=== PATIENT | female | born 1965 | race American Indian/Alaskan Native ===

== ENCOUNTER 2017-08-12 20:03 | Emergency (ER) | payer SELFPAY ==
[2017-08-12 21:24] LABS: Basophils % (Auto) 0.2 % (0.0-1.8); Eosinophils # (Auto) 0.1 K/mm3 (0.0-0.4); Eosinophils % (Auto) 1.8 % (0.0-4.3); Hematocrit 45.8 % (30.3-42.9); Hemoglobin 15.1 gm/dl (10.1-14.3); Lymphocytes # (Auto) 0.9 K/mm3 (1.2-5.4); Lymphocytes % (Auto) 22.5 % (13.4-35.0); Mean Corpuscular HGB Conc 33 % (30-34); Mean Corpuscular Hemoglobin 30 pg (28-32); Mean Corpuscular Volume 90 fl (79-97); Monocytes # (Auto) 0.3 K/mm3 (0.0-0.8); Monocytes % (Auto) 7.7 % (0.0-7.3); Platelet Count 164 K/mm3 (140-440); Red Cell Distribution Width 13.7 % (13.2-15.2)
[2017-08-12 21:45] LABS: Alanine Aminotransferase 15 units/L (7-56); Albumin 4.4 g/dL (3.9-5); BUN/Creatinine Ratio 19; Blood Urea Nitrogen 15 mg/dL (7-17); Calcium 10.8 mg/dL (8.4-10.2); Hemolysis Index 3
[2017-08-13 03:58] LABS: Bacteria,Urine 1+ /HPF (Negative); Bilirubin,Urine NEG (Negative); Blood,Urine NEG (Negative); Calcium Oxalate Crystals,Urine 2+; Color,Urine Yellow (Yellow); Hyaline Casts,Urine 1 /LPF; Mucus,Urine FEW /HPF; Nitrite,Urine NEG (Negative); Protein,Urine <15 mg/dL mg/dL (Negative); Urobilinogen,Urine < 2.0 mg/dL (<2.0)
[2017-08-13] MEDS ORDERED: ZOFRAN IV ONE (08:10)
[2017-08-13] MEDS ORDERED: TORADOL IV ONE (08:10)
[2017-08-13] MEDS ORDERED: NACL 0.9% 500 ML 500 ML IV ONE (08:10)
--- NOTE | 2017-08-13 08:25 | Emergency Department Report ---
HPI - General Chief Complaint: Abdominal Pain Time Seen by Provider: 08/13/17 08:06 - [facility] HPI: The patient is a 52-year-old female presents for evaluation of abdominal pain. The patient reports upper abdominal pain since 1 PM yesterday, approximately 20 hours prior to my evaluation. The patient states that her abdominal pain has been cramping in quality, moderate to severe, currently 7/10 in severity, and is exacerbated with defecation. She has also has experienced multiple episodes of loose watery stools x4-5 since y/d afternoon, and recurrent nausea. The patient denies fever, chest pain, dyspnea, hematemesis, blood in the stools, black tarry stools, recent antibiotic use, travel outside the country, exposure to raw or uncooked seafood, reheated foods, untreated water, unpasteurized dairy. ED Past Medical Hx - Past Medical History Previous Medical History?: Yes Hx Asthma: Yes - Surgical History Past Surgical History?: Yes Additional Surgical History: x5 - Social History Smoking Status: Never Smoker Substance Use Type: None - Medications Home Medications: Home Medications Medication Instructions Recorded Confirmed Last Taken Type Acetaminophen [Tylenol] 1,000 mg PO Q6HR #20 tablet 08/13/17 Unknown Rx Ibuprofen [Motrin] 800 mg PO Q8HR PRN #15 tablet 08/13/17 Unknown Rx Ondansetron [Zofran TAB] 4 mg PO Q8HR PRN #20 tablet 08/13/17 Unknown Rx ED Review of Systems ROS: Stated complaint: N/V/D Other details as noted in HPI Constitutional: denies: fever ENT: denies: throat or neck pain Respiratory: denies: cough, shortness of breath Cardiovascular: denies: chest pain Endocrine: denies unexplained weight loss or gain Gastrointestinal: reports abdominal pain, nausea Genitourinary: denies: dysuria Musculoskeletal: denies: leg swelling Skin: denies: rash Neurological: denies: headache Hematological/Lymphatic: denies: easy bleeding or easy bruising Psych: denies sadness or hopelessness Physical Exam - Physical Exam Vital Signs: Vital Signs 08/12/17 08/13/17 08/13/17 20:34 06:35 07:10 Temperature 99 F 98.1 F 98.4 F Pulse Rate 78 56 L 62 Respiratory 18 18 18 Rate Blood Pressure 115/71 Blood Pressure 129/73 106/58 [Left] O2 Sat by Pulse 97 100 97 Oximetry Physical Exam: General: well-nourished, well-developed, no acute distress Head: Normocephalic, atraumatic Eyes: normal sclera ENT: Mucous membranes are pale and dry Neck: No neck stiffness, no cervical adenopathy Respiratory: Breath sounds equal bilaterally, no wheezing, rales, or rhonchi Cardio: S1 and S2 present, no murmurs, rubs, gallops, capillary refill is delayed Abdomen: Normoactive bowel sounds, soft abdomen, epigastric and left upper quadrant tenderness to palpation present, no rigidity, no guarding or rebound tenderness Chest WALL/Back: No tenderness to palpation of the chest wall, no CVA tenderness with percussion Musc: No pitting edema Skin: No rash Neuro: no facial drooping, normal speech Psych: Normal affect ED Course Vital Signs 08/12/17 08/13/17 08/13/17 20:34 06:35 07:10 Temperature 99 F 98.1 F 98.4 F Pulse Rate 78 56 L 62 Respiratory 18 18 18 Rate Blood Pressure 115/71 Blood Pressure 129/73 106/58 [Left] O2 Sat by Pulse 97 100 97 Oximetry ED Medical Decision Making - Lab Data Result diagrams: 08/12/17 21:05 08/12/17 21:05 - Medical Decision Making The patient was seen and examined by myself. The patient is placed on a textile stylist and continuous pulse ox. On initial evaluation, the patient was found to be in no distress. Evaluation orders are placed. IV access is established and the patient is given 1 L normal saline fluid bolus and offered Zofran for nausea, and IV toradol for pain but she declined. Lab results exhibited elevated hemoglobin and hematocrit, consistent with hemoconcentration and exam findings of dehydration, and otherwise labs were non-concerning including WBC, electrolytes, renal function, LFTs, lipase. The patient was reevaluated and reported that their symptoms were markedly improved. The patient is stable for discharge with outpatient follow-up. The patient is given follow-up and return instructions. The patient expressed understanding and agreed with the plan. The patient is discharged in stable condition. Critical care attestation.: If time is entered above; I have spent that time in minutes in the direct care of this critically ill patient, excluding procedure time. ED Disposition Clinical Impression: Dehydration, Abdominal pain, acute, epigastric Diarrhea Qualifiers: Diarrhea type: unspecified type Qualified Code(s): R19.7 - Diarrhea, unspecified Disposition: TO HOME OR SELFCARE Is pt being admited?: No Does the pt Need Aspirin: No Condition: Stable Instructions: Abdominal Pain (ED), Gastroenteritis (ED), Nutrition Tips for Relief of Diarrhea (ED) Prescriptions: Acetaminophen [Tylenol] 1,000 mg PO Q6HR #20 tablet Ibuprofen [Motrin] 800 mg PO Q8HR PRN #15 tablet PRN Reason: Pain Ondansetron [Zofran TAB] 4 mg PO Q8HR PRN #20 tablet PRN Reason: Nausea Referrals: JEANETTE MERCADO [Other] - 3-5 Days Time of Disposition: 08:25
[2017-08-13 10:38] VITALS: BP 108/61
[2017-08-13 15:30] LABS: HCG Qualitative,Urine Negative (Negative)
== END 2017-08-13 10:18 | disposition home or self-care (01) ==
LOC: ED 20:03
DX: E86.0 Dehydration (principal); R10.13 Epigastric pain; R19.7 Diarrhea, unspecified; J45.909 Unspecified asthma, uncomplicated; Z88.5 Allergy status to narcotic agent
CPT/HCPCS: 36415; 80053; 81001; 81025; 85025; 99284; J2405; J7040; J1885

== ENCOUNTER 2018-08-18 20:59 | Emergency (ER) | payer SELFPAY ==
[2018-08-18] MEDS ORDERED: NACL 0.9% 1000 ML 1,000 ML IV ONE (21:45)
--- NOTE | 2018-08-18 21:47 | Emergency Department Report ---
Blank Doc - Documentation Documentation: 53 y.o. female presents with nausea, diarrhea, and abdominal pain. States pain is severe cramping to LUQ. Denies vomiting Labs ordered Fast Track for evaluation
[2018-08-18 23:31] LABS: Basophils % (Auto) 0.3 % (0.0-1.8); Eosinophils # (Auto) 0.1 K/mm3 (0.0-0.4); Eosinophils % (Auto) 1.6 % (0.0-4.3); Hematocrit 43.7 % (30.3-42.9); Lymphocytes # (Auto) 0.8 K/mm3 (1.2-5.4); Lymphocytes % (Auto) 15.5 % (13.4-35.0); Mean Corpuscular HGB Conc 32 % (30-34); Mean Corpuscular Volume 89 fl (79-97); Monocytes # (Auto) 0.4 K/mm3 (0.0-0.8); Monocytes % (Auto) 7.5 % (0.0-7.3); Platelet Count 164 K/mm3 (140-440); Red Cell Distribution Width 13.6 % (13.2-15.2)
[2018-08-18 23:50] LABS: Bilirubin,Urine NEG (Negative); Blood,Urine NEG (Negative); Color,Urine Yellow (Yellow); Mucus,Urine FEW /HPF; Protein,Urine <15 mg/dL mg/dL (Negative); Urobilinogen,Urine < 2.0 mg/dL (<2.0)
[2018-08-19 00:05] LABS: Alanine Aminotransferase 14 units/L (7-56); Albumin 4.2 g/dL (3.9-5); BUN/Creatinine Ratio 12; Blood Urea Nitrogen 11 mg/dL (7-17); Calcium 9.8 mg/dL (8.4-10.2); Hemolysis Index 9
[2018-08-19] MEDS ORDERED: ZOFRAN IV ONE (01:37)
[2018-08-19] MEDS ORDERED: NACL 0.9% 1000 ML 2,000 ML IV ONE (01:37)
[2018-08-19] MEDS ORDERED: PEPCID IV ONE (01:37)
[2018-08-19] MEDS ORDERED: CARAFATE PO ONE (01:38)
[2018-08-19] MEDS ORDERED: BENTYL PO ONE (01:38)
[2018-08-19] MEDS ORDERED: TYLENOL PO ONE (01:39)
--- NOTE | 2018-08-19 01:40 | Emergency Department Report ---
ED General Adult HPI - General Chief complaint: Abdominal Pain Stated complaint: ABD PAIN Time Seen by Provider: 08/18/18 21:42 Source: patient, EMS (ems notes not available at time of chart dictation), RN notes reviewed Mode of arrival: Stretcher Limitations: No Limitations - History of Present Illness Initial comments: Lexii a 53-year-old female who is not known to this provider previously, reports no current primary care doctor, denies chronic medical conditions. Patient reports that she has had a colonoscopy within the past 5 years, and rep orts polyps, but otherwise no significant findings. Presents to the emergency room today with a complaint of left-sided abdominal pain, which feels like "my stomach is turning inside out." This is associated with 16 episodes of nonbloody, nonbilious diarrhea, watery in nature. Patient denies chest pain, shortness of breath, irritative, obstructive urinary symptoms, but feels generally weak. Symptoms constant since earlier on yesterday, did not radiate anywhere, increased with palpation, range of motion, decreased with rest No recent antibiotic use, no fevers that she is aware of, no sick contacts that she is aware of. Denies raw, undercooked food consumption. -: Gradual Location: abdomen Radiation: non-radiation Severity scale (0 -10): 10 Quality: aching, other (see history of present illness) Consistency: other Improves with: other Worsens with: other Associated Symptoms: loss of appetite, malaise, nausea/vomiting (nausea, no vomiting), weakness. denies: confusion, chest pain, cough, diaphoresis, fever/chills, headaches, rash, seizure, shortness of breath, syncope - Related Data Previous Rx's Medication Instructions Recorded Last Taken Type Acetaminophen [Tylenol] 1,000 mg PO Q6HR #20 tablet 08/13/17 Unknown Rx Ibuprofen [Motrin] 800 mg PO Q8HR PRN #15 tablet 08/13/17 Unknown Rx Ondansetron [Zofran TAB] 4 mg PO Q8HR PRN #20 tablet 08/13/17 Unknown Rx Acetaminophen [Tylenol Arthritis] 650 mg PO Q6HR PRN #30 tablet.er 08/19/18 Unknown Rx Ibuprofen [Motrin] 600 mg PO Q8H PRN #30 tablet 08/19/18 Unknown Rx Loperamide HCl [Anti-Diarrheal] 2 mg PO Q1HR PRN #60 tablet 08/19/18 Unknown Rx Ondansetron [Zofran Odt] 4 mg PO Q8HR PRN #20 tab.rapdis 08/19/18 Unknown Rx Allergies Allergy/AdvReac Type Severity Reaction Status Date / Time codeine Allergy Swelling Verified 08/12/17 20:43 diphenhydramine Allergy Unknown Verified 08/19/18 03:06 [From Benadryl] ED Review of Systems ROS: Stated complaint: ABD PAIN Other details as noted in HPI Constitutional: malaise Eyes: denies: vision change ENT: denies: epistaxis Respiratory: denies: cough Cardiovascular: denies: chest pain Gastrointestinal: abdominal pain, diarrhea. denies: vomiting Genitourinary: denies: dysuria Musculoskeletal: denies: back pain Skin: denies: lesions Neurological: weakness Psychiatric: anxiety ED Past Medical Hx - Past Medical History Hx Asthma: Yes Additional medical history: heart murmur - Surgical History Additional Surgical History: x5 - Social History Smoking Status: Never Smoker Substance Use Type: None - Medications Home Medications: Home Medications Medication Instructions Recorded Confirmed Last Taken Type Acetaminophen [Tylenol] 1,000 mg PO Q6HR #20 tablet 08/13/17 Unknown Rx Ibuprofen [Motrin] 800 mg PO Q8HR PRN #15 tablet 08/13/17 Unknown Rx Ondansetron [Zofran TAB] 4 mg PO Q8HR PRN #20 tablet 08/13/17 Unknown Rx Acetaminophen [Tylenol Arthritis] 650 mg PO Q6HR PRN #30 tablet.er 08/19/18 Unknown Rx Ibuprofen [Motrin] 600 mg PO Q8H PRN #30 tablet 08/19/18 Unknown Rx Loperamide HCl [Anti-Diarrheal] 2 mg PO Q1HR PRN #60 tablet 08/19/18 Unknown Rx Ondansetron [Zofran Odt] 4 mg PO Q8HR PRN #20 tab.rapdis 08/19/18 Unknown Rx ED Physical Exam - General Limitations: Physical Limitation General appearance: alert, in no apparent distress - Head Head exam: Present: atraumatic, normocephalic - Eye Eye exam: Present: normal appearance, EOMI. Absent: nystagmus - ENT ENT exam: Present: normal exam, normal orophraynx, mucous membranes moist, normal external ear exam - Neck Neck exam: Present: normal inspection, full ROM. Absent: tenderness, meningismus - Respiratory Respiratory exam: Present: normal lung sounds bilaterally. Absent: respiratory distress - Cardiovascular Cardiovascular Exam: Present: regular rate, normal rhythm, normal heart sounds. Absent: bradycardia, tachycardia, irregular rhythm, systolic murmur, diastolic murmur, rubs, gallop - GI/Abdominal GI/Abdominal exam: Present: soft, tenderness, other (there is left-sided abdominal tenderness, with no rebound, guarding or peritoneal signs). Absent: distended, guarding, rebound, rigid, pulsatile mass - Extremities Exam Extremities exam: Present: normal inspection, full ROM, other (2+ pulses noted in the bilateral upper, lower extremities. Compartments soft. No long bony tenderness. The pelvis is stable.). Absent: tenderness, pedal edema, joint swelling, calf tenderness - Back Exam Back exam: Present: normal inspection, full ROM. Absent: tenderness, CVA tenderness (R), paraspinal tenderness, vertebral tenderness - Neurological Exam Neurological exam: Present: alert, other (Extraocular movements intact. Tongue midline. No facial droop. Facial sensation intact to light touch in the V1, V2, V3 distribution bilaterally. 5 and 5 strength in 4 extremities.. Sensation is intact to light touch in 4 extremities.). Absent: motor sensory deficit - Psychiatric Psychiatric exam: Present: normal affect, normal mood - Skin Skin exam: Present: warm, dry, intact, normal color. Absent: rash ED Course Vital Signs 08/18/18 08/18/18 08/19/18 21:25 23:55 00:00 Temperature 99.4 F 98.9 F Pulse Rate 78 64 64 Respiratory 16 19 24 Rate Blood Pressure 117/63 121/68 108/64 Blood Pressure 121/68 [Left] O2 Sat by Pulse 99 100 Oximetry 08/19/18 08/19/18 08/19/18 01:00 02:10 02:52 Temperature 99 F Pulse Rate 82 68 Respiratory 23 16 20 Rate Blood Pressure 124/70 Blood Pressure 104/63 [Left] O2 Sat by Pulse 96 Oximetry 08/19/18 08/19/18 08/19/18 03:00 03:10 04:03 Temperature 99 F Pulse Rate 67 68 Respiratory 20 16 21 Rate Blood Pressure 93/57 Blood Pressure 101/58 [Left] O2 Sat by Pulse 92 98 Oximetry - Reevaluation(s) Reevaluation #1: 08/19/18 03:33 Differential diagnosis, including but not limited to: Colitis, diverticulitis, enteritis, perforated viscus Assessment and plan: 53-year-old female with left-sided abdominal pain, tenderness, diarrhea, suspect colitis, or diverticulitis. Patient is afebrile, with reassuring vital signs. Appears to be uncomfortable. We will treat her symptoms supportively, obtained CT scan of the abdomen and pelvis, and reassess after initial that appointment. Reevaluation #2: 08/19/18 05:03 CT scan shows enteritis as expected. No evidence of obstruction. Patient tolerating liquid feeds. We will start patient on loperamide, encourage oral hydration, diet as tolerated, and pain medication, antiemetic medication as needed. Patient now endorses that she does not have any place to go, and indicates that she is homeless. She does not meet criteria for medical admission to the hospital, but we will obtain a case management evaluation to provide the patient with resources that she may go to. She is resting comfortably in her stretcher, having a full conversation, and in no acute distress. ED Medical Decision Making - Lab Data Result diagrams: 08/18/18 23:16 08/18/18 23:16 Vital Signs 08/18/18 08/18/18 08/19/18 21:25 23:55 00:00 Temperature 99.4 F 98.9 F Pulse Rate 78 64 64 Respiratory 16 19 24 Rate Blood Pressure 117/63 121/68 108/64 Blood Pressure 121/68 [Left] O2 Sat by Pulse 99 100 Oximetry 08/19/18 08/19/18 08/19/18 01:00 02:10 02:52 Temperature 99 F Pulse Rate 82 68 Respiratory 23 16 20 Rate Blood Pressure 124/70 Blood Pressure 104/63 [Left] O2 Sat by Pulse 96 Oximetry Lab Results 08/18/18 08/18/18 08/18/18 Range/Units 23:16 23:16 23:16 WBC 5.1 (4.5-11.0) K/mm3 RBC 4.90 (3.65-5.03) M/mm3 Hgb 14.0 (10.1-14.3) gm/dl Hct 43.7 H (30.3-42.9) % MCV 89 (79-97) fl MCH 29 (28-32) pg MCHC 32 (30-34) % RDW 13.6 (13.2-15.2) % Plt Count 164 (140-440) K/mm3 Lymph % (Auto) 15.5 (13.4-35.0) % [place] % (Auto) 7.5 H (0.0-7.3) % Eos % (Auto) 1.6 (0.0-4.3) % Baso % (Auto) 0.3 (0.0-1.8) % Lymph # 0.8 L (1.2-5.4) K/mm3 [place] # 0.4 (0.0-0.8) K/mm3 Eos # 0.1 (0.0-0.4) K/mm3 Baso # 0.0 (0.0-0.1) K/mm3 Seg Neutrophils % 75.1 H (40.0-70.0) % Seg Neutrophils # 3.8 (1.8-7.7) K/mm3 Sodium 140 (137-145) mmol/L Potassium 4.0 (3.6-5.0) mmol/L Chloride 105.7 (98-107) mmol/L Carbon Dioxide 25 (22-30) mmol/L Anion Gap 13 mmol/L BUN 11 (7-17) mg/dL Creatinine 0.9 (0.7-1.2) mg/dL Estimated GFR > 60 ml/min BUN/Creatinine Ratio 12 % Glucose 89 (65-100) mg/dL Calcium 9.8 (8.4-10.2) mg/dL Total Bilirubin 0.30 (0.1-1.2) mg/dL AST 19 (5-40) units/L ALT 14 (7-56) units/L Alkaline Phosphatase 65 (35-129) units/L Total Protein 7.1 (6.3-8.2) g/dL Albumin 4.2 (3.9-5) g/dL Albumin/Globulin Ratio 1.4 % Lipase 20 (13-60) units/L Urine Color (Yellow) Urine Turbidity (Clear) Urine pH (5.0-7.0) Ur Specific [place] (1.003-1.030) Urine Protein (Negative) mg/dL Urine Glucose (UA) (Negative) mg/dL Urine Ketones (Negative) mg/dL Urine Blood (Negative) Urine Nitrite (Negative) Urine Bilirubin (Negative) Urine Urobilinogen (<2.0) mg/dL Ur Leukocyte Esterase (Negative) Urine WBC (Auto) (0.0-6.0) /HPF Urine RBC (Auto) (0.0-6.0) /HPF U Epithel Cells (Auto) (0-13.0) /HPF Urine Mucus /HPF 08/18/18 Range/Units 23:30 WBC (4.5-11.0) K/mm3 RBC (3.65-5.03) M/mm3 Hgb (10.1-14.3) gm/dl Hct (30.3-42.9) % MCV (79-97) fl MCH (28-32) pg MCHC (30-34) % RDW (13.2-15.2) % Plt Count (140-440) K/mm3 Lymph % (Auto) (13.4-35.0) % [place] % (Auto) (0.0-7.3) % Eos % (Auto) (0.0-4.3) % Baso % (Auto) (0.0-1.8) % Lymph # (1.2-5.4) K/mm3 [place] # (0.0-0.8) K/mm3 Eos # (0.0-0.4) K/mm3 Baso # (0.0-0.1) K/mm3 Seg Neutrophils % (40.0-70.0) % Seg Neutrophils # (1.8-7.7) K/mm3 Sodium (137-145) mmol/L Potassium (3.6-5.0) mmol/L Chloride (98-107) mmol/L Carbon Dioxide (22-30) mmol/L Anion Gap mmol/L BUN (7-17) mg/dL Creatinine (0.7-1.2) mg/dL Estimated GFR ml/min BUN/Creatinine Ratio % Glucose (65-100) mg/dL Calcium (8.4-10.2) mg/dL Total Bilirubin (0.1-1.2) mg/dL AST (5-40) units/L ALT (7-56) units/L Alkaline Phosphatase (35-129) units/L Total Protein (6.3-8.2) g/dL Albumin (3.9-5) g/dL Albumin/Globulin Ratio % Lipase (13-60) units/L Urine Color Yellow (Yellow) Urine Turbidity Clear (Clear) Urine pH 5.0 (5.0-7.0) Ur Specific [place] 1.023 (1.003-1.030) Urine Protein <15 mg/dl (Negative) mg/dL Urine Glucose (UA) Neg (Negative) mg/dL Urine Ketones Neg (Negative) mg/dL Urine Blood Neg (Negative) Urine Nitrite Neg (Negative) Urine Bilirubin Neg (Negative) Urine Urobilinogen < 2.0 (<2.0) mg/dL Ur Leukocyte Esterase Mod (Negative) Urine WBC (Auto) 3.0 (0.0-6.0) /HPF Urine RBC (Auto) 1.0 (0.0-6.0) /HPF U Epithel Cells (Auto) 2.0 (0-13.0) /HPF Urine Mucus Few /HPF - EKG Data -: EKG Interpreted by Sc EKG shows normal: sinus rhythm Rate: normal - EKG Data When compared to previous EKG there are: previous EKG unavailable 08/19/18 03:35 Normal sinus, 61 bpm, normal axis, normal intervals, low voltage, not consistent with ST elevation myocardial infarction. There is no prior EKG available for comparison. - Radiology Data Radiology results: pending, report reviewed, image reviewed Print Report Referring Physician: KEYANA YOUNG Patient Name: MELANIA HUDSON Date of : 1965 Sex: Female Report Date: 2018-08-19 Report Status: [place] [address] Cat Scan Report Signed Patient: MELANIA HUDSON MR#: [id number] : 1965 Acct:[id number] Age/Sex: 53 / F ADM Date: 08/18/18 Loc: ED Attending Dr: Ordering Physician: KEYANA YOUNG MD Date of Service: 08/19/18 Procedure(s): CT abdomen pelvis w con Accession Number(s): [id number] cc: KEYANA YOUNG MD FINAL REPORT PROCEDURE: CT ABDOMEN PELVIS W CON TECHNIQUE: Computerized axial tomography of the abdomen and pelvis was performed after the IV injection of iodinated nonionic contrast. HISTORY: left-sided abdominal pain, diarrhea COMPARISON: No prior studies are available for comparison. FINDINGS: Visualized lower thorax: No significant abnormality. Liver: Normal size and attenuation. There is a 13 millimeter cyst or hemangioma in the right lobe of the liver near the diaphragm. Spleen: Normal size and attenuation. Gallbladder and biliary system: Normal. Pancreas: Normal. Adrenals: Normal. Kidneys: There is a 17 millimeters cyst in the left kidney. There are no kidney stones. There is no hydronephrosis. GI tract: There are fluid-filled and thickened loops of small bowel without specific evidence of obstruction suggesting enteritis and mild ileus. The colon and appendix are unremarkable. There is no evidence of ischemic bowel injury.. Lymph nodes and mesentery: Normal. Vasculature: Normal. Bladder: Urinary bladder is unremarkable.. Reproductive organs: Uterus is unremarkable.. Peritoneum: There is no ascites or free air, abscess or adenopathy.. Musculoskeletal structures: No significant abnormality. Other: None. IMPRESSION: There is a 13 millimeter cyst or hemangioma in the right lobe of the liver near the diaphragm. There is a 17 millimeters cyst in the left kidney. There are no kidney stones. There is no hydronephrosis. There are fluid-filled and thickened loops of small bowel without specific evidence of obstruction suggesting enteritis and mild ileus. The colon and appendix are unremarkable. There is no evidence of ischemic bowel injury.. Urinary bladder is unremarkable.. There is no ascites or free air, abscess or adenopathy.. Transcribed By: CO Dictated By: MELANIA HARRELL MD Electronically Authenticated By: MELANIA HARRELL MD Signed Date/Time: 08/19/18 0402 Critical care attestation.: If time is entered above; I have spent that time in minutes in the direct care of this critically ill patient, excluding procedure time. ED Disposition Clinical Impression: Enteritis Disposition: DC-01 TO HOME OR SELFCARE Is pt being admited?: No Does the pt Need Aspirin: No Condition: Stable Instructions: Gastroenteritis (ED) Additional Instructions: Cultures were sent today, and results will be available in the next 3-5 days please have your primary care doctor contact the medical records department to obtain culture results. Take the medications as needed/directed. Follow up with her primary care doctor within the next 2-6 weeks. Return to the emergency room right away with new, worsening or different symptoms. Advance diet as tolerated, drink 6-8 cups of water per day Referrals: YESSICA SMALL MD [Primary Care Provider] - 7-10 days [facility] [Provider Group] - 7-10 days
--- NOTE | 2018-08-19 04:01 | Cat Scan Report ---
FINAL REPORT PROCEDURE: CT ABDOMEN PELVIS W CON TECHNIQUE: Computerized axial tomography of the abdomen and pelvis was performed after the IV inject ion of iodinated nonionic contrast. HISTORY: left-sided abdominal pain, diarrhea COMPARISON: No prior studies are available for comparison. FINDINGS: Visualized lower thorax: No significant abnormality. Liver: Normal size and attenuation. There is a 13 millimeter cyst or hemangioma in the right lobe of the liver near the diaphragm. Spleen: Normal size and attenuation. Gallbladder and biliary system: Normal. Pancreas: Normal. Adrenals: Normal. Kidneys: There is a 17 millimeters cyst in the left kidney. There are no kidney stones. There is no h ydronephrosis. GI tract: There are fluid-filled and thickened loops of small bowel without specific evidence of obst ruction suggesting enteritis and mild ileus. The colon and appendix are unremarkable. There is no lydia dence of ischemic bowel injury.. Lymph nodes and mesentery: Normal. Vasculature: Normal. Bladder: Urinary bladder is unremarkable.. Reproductive organs: Uterus is unremarkable.. Peritoneum: There is no ascites or free air, abscess or adenopathy.. Musculoskeletal structures: No significant abnormality. Other: None. IMPRESSION: There is a 13 millimeter cyst or hemangioma in the right lobe of the liver near the diaphragm. There is a 17 millimeters cyst in the left kidney. There are no kidney stones. There is no hydronephr osis. There are fluid-filled and thickened loops of small bowel without specific evidence of obstruction mahan ggesting enteritis and mild ileus. The colon and appendix are unremarkable. There is no evidence of i schemic bowel injury.. Urinary bladder is unremarkable.. There is no ascites or free air, abscess or adenopathy..
[2018-08-19] MEDS ORDERED: NACL 0.9% 1000 ML 1,000 ML ONE (04:07)
[2018-08-19] MEDS ORDERED: NACL 0.9% 1000 ML 1,000 ML IV ONE (05:02)
[2018-08-19] MEDS ORDERED: IMODIUM PO ONE (05:03)
[2018-08-19 10:37] VITALS: BP 101/50
== END 2018-08-19 10:30 | disposition home or self-care (01) ==
LOC: ED 20:59
DX: K52.9 Noninfective gastroenteritis and colitis, unspecified (principal); J45.909 Unspecified asthma, uncomplicated
CPT/HCPCS: 36415; 74177; 80053; 81001; 83690; 85025; 87324; 93005; 93010; 96361; 96374; 96375; 99285; J2405; J7030; Q9967